=== PATIENT | male | born 1975 | race Caucasian/White ===

== ENCOUNTER 2017-10-31 21:01 | Emergency (ER) | payer BC, OTHER ==
--- NOTE | 2017-10-31 21:44 | ED ---
Allergic Reaction/Systemic - HPI Summary HPI Summary: 42-year-old male presents with bug bite to left ankle this morning. He states area has swollen. He admits to some itching to the area. has mild redness. No diffuse rash. No chest pain or shortness breath. No difficulty swallowing. No sore throat. No abdominal pain. No nausea no vomiting. He denies any previous reaction to a bug bite. He has no allergies to medication. He's been taking some Benadryl. No fevers. He is not diabetic. - History of Current Complaint Chief Complaint: EDRashSkinAbscess Time Seen by Provider: 10/31/17 21:44 Pain Intensity: 10 - Allergies/Home Medications Allergies/Adverse Reactions: Allergies Allergy/AdvReac Type Severity Reaction Status Date / Time No Known Allergies Allergy Verified 10/29/14 15:45 PMH/Surg Hx/FS Hx/Imm Hx Endocrine/Hematology History: Denies: Hx Anticoagulant Therapy, Hx Diabetes, Hx Thyroid Disease Cardiovascular History: Denies: Hx Hypertension Respiratory History: Reports: Hx Asthma Denies: Hx Chronic Obstructive Pulmonary Disease (COPD) GI History: Denies: Hx Ulcer Infectious Disease History: No Infectious Disease History: Denies: Hx Clostridium Difficile, Hx Hepatitis, Hx Human Immunodeficiency Virus (HIV), Hx of Known/Suspected MRSA, Hx Shingles, Hx Tuberculosis, Hx Known/ Suspected VRE, Hx Known/Suspected VRSA, History Other Infectious Disease, Traveled Outside the in Last 30 Days - Family History Known Family History: Positive: Hypertension - Social History Alcohol Use: Occasionally Substance Use Type: Reports: None Hx Tobacco Use: Yes Smoking Status (MU): Heavy Every Day Tobacco Smoker Type: Cigarettes Review of Systems Negative: Fever Negative: Chest Pain Negative: Shortness Of Breath Positive: Rash All Other Systems Reviewed And Are Negative: Yes Physical Exam Triage Information Reviewed: Yes Vital Signs On Initial Exam: Initial Vitals Temp Pulse Resp BP Pulse Ox 99.8 F 91 20 130/85 98 10/31/17 21:15 10/31/17 21:15 10/31/17 21:15 10/31/17 21:15 10/31/17 21:15 Vital Signs Reviewed: Yes Appearance: Positive: Well-Appearing Skin: Positive: Warm, Dry Head/Face: Positive: Normal Head/Face Inspection Eyes: Positive: Normal, Conjunctiva Clear ENT: Positive: Pharynx normal Respiratory/Lung Sounds: Positive: Clear to Auscultation, Breath Sounds Present Cardiovascular: Positive: Normal, RRR Musculoskeletal: Positive: Strength/ROM Intact - left ankle, Edema Left - mild, Other - mild erythema and edema around bug bite, no sign of cellulitis, Neurological: Positive: Normal Psychiatric: Positive: Normal Diagnostics - Vital Signs Vital Signs Temp Pulse Resp BP Pulse Ox 10/31/17 21:15 99.8 F 91 20 130/85 98 - Laboratory Lab Statement: Any lab studies that have been ordered have been reviewed, and results considered in the medical decision making process. Allergic Reaction Course/Dx - Course Course Of Treatment: 42-year-old male presents with bug bite to left ankle this morning. He states area has swollen. He admits to some itching to the area. has mild redness. No diffuse rash. No chest pain or shortness breath. No difficulty swallowing. No sore throat. No abdominal pain. No nausea no vomiting. He denies any previous reaction to a bug bite. He has no allergies to medication. He's been taking some Benadryl. No fevers. He is not diabetic. On exam mild erythema and edema. Full range of motion. Neurovascular intact. Lungs clear to auscultation. Discussed with minimal edema steroid probably will not do anything. Told to continue Benadryl. Told is worse tomorrow to start the steroid. Patient understands agrees with plan. - Diagnoses Differential Diagnosis/HQI/PQRI: Positive: Anaphylaxis, Local Allergic Reaction , Urticaria Provider Diagnoses: Bug bite Discharge - Sign-Out/Discharge Documenting (check all that apply): Patient Departure - Discharge Plan Condition: Good Disposition: HOME Prescriptions: predniSONE TAB* [Deltasone TAB*] 50 mg PO DAILY #4 tab Patient Education Materials: Insect Bite or Sting (ED) Referrals: Timothy Balderas MD [Primary Care Provider] - Additional Instructions: Take Benadryl every 6 hours If gets worst take steroid once a day for 4 days ice, elevate Return to ED if shortness of breath, chest pain, or if develop any new or worsening symptoms - Billing Disposition and Condition Condition: GOOD Disposition: Home
[2017-10-31 22:16] VITALS: BP 123/81
== END 2017-10-31 22:14 | disposition home or self-care (01) ==
LOC: ED 21:01
DX: S90.572A Other superficial bite of ankle, left ankle, initial encounter (principal); W57.XXXA Bitten or stung by nonvenomous insect and other nonvenomous arthropods, initial encounter; Y92.9 Unspecified place or not applicable
CPT/HCPCS: 99282

== ENCOUNTER 2018-09-26 13:28 | Emergency (ER) | payer SELFPAY ==
[2018-09-26] MEDS ORDERED: DOXYcycline CAP(*) 100 MG PO ONE (14:23)
[2018-09-26] MEDS ORDERED: Tetan/Diph/Pertus SYR(Tdap)* 0.5 ML SYR(BOOSTRIX) use SYR IM ONE (14:23)
--- NOTE | 2018-09-26 14:25 | ED ---
Skin Complaint - HPI Summary HPI Summary: This patient is a 42 year old male presenting to [facility] with a chief complaint of bulls eye rash on the posterior left leg since two days ago. He states he thinks he had a tick bite there and presents with the typical rash, but did not ever see a tick on him. He denies and headache, chest pain, SOB, or fatigue. The patient will be given medication rule out Lyme. - History of Current Complaint Chief Complaint: EDGeneral Time Seen by Provider: 09/26/18 14:14 Stated Complaint: POSSIBLE TICK BITE Hx Obtained From: Patient Onset/Duration: Started Hours Ago Skin Exposure Onset/Duration: Days Ago Pain Intensity: 4 Pain Scale Used: 0-10 Numeric Skin Location: Leg - Allergy/Home Medications Allergies/Adverse Reactions: Allergies Allergy/AdvReac Type Severity Reaction Status Date / Time No Known Allergies Allergy Verified 09/26/18 14:19 PMH/Surg Hx/FS Hx/Imm Hx Endocrine/Hematology History: Denies: Hx Anticoagulant Therapy, Hx Diabetes, Hx Thyroid Disease Cardiovascular History: Denies: Hx Hypertension Respiratory History: Reports: Hx Asthma Denies: Hx Chronic Obstructive Pulmonary Disease (COPD) GI History: Denies: Hx Ulcer Infectious Disease History: No Infectious Disease History: Denies: Hx Clostridium Difficile, Hx Hepatitis, Hx Human Immunodeficiency Virus (HIV), Hx of Known/Suspected MRSA, Hx Shingles, Hx Tuberculosis, Hx Known/ Suspected VRE, Hx Known/Suspected VRSA, History Other Infectious Disease, Traveled Outside the [place] in Last 30 Days - Family History Known Family History: Positive: Hypertension - Social History Alcohol Use: None Substance Use Type: Reports: None Hx Tobacco Use: Yes Smoking Status (MU): Heavy Every Day Tobacco Smoker Type: Cigarettes Review of Systems Negative: Fever Positive: Rash All Other Systems Reviewed And Are Negative: Yes Physical Exam - Summary Physical Exam Summary: Appearance: Well appearing, no pain distress Skin: warm, dry, reflects adequate perfusion. Macular erythemous rash 8x8 over the posterior LLE above the knee. Head/face: normal Eyes: EOMI, JOSEE ENT: normal Neck: supple, non-tender Respiratory: CTA, breath sounds present Cardiovascular: RRR, pulses symmetrical Abdomen: non-tender, soft Musculoskeletal: normal, strength/ROM intact Neuro: normal, sensory motor intact, A&Ox3 Triage Information Reviewed: Yes Vital Signs On Initial Exam: Initial Vitals Temp Pulse Resp BP Pulse Ox 99 F 100 20 143/89 97 09/26/18 13:30 09/26/18 13:30 09/26/18 13:30 09/26/18 13:30 09/26/18 13:30 Vital Signs Reviewed: Yes Diagnostics - Vital Signs Vital Signs Temp Pulse Resp BP Pulse Ox 09/26/18 13:30 99 F 100 20 143/89 97 - Laboratory Lab Statement: Any lab studies that have been ordered have been reviewed, and results considered in the medical decision making process. Course/Dx - Course Course Of Treatment: This patient is a 42 year old male presenting to [facility] with a chief complaint of bulls eye rash on the posterior left leg since two days ago. The patient will be given doxycycline rule out Lyme. He will be tested for the disease and discharged where he will receive his results over the next few days. This plan was discussed with the patient and he was agreeable with this plan. - Diagnoses Provider Diagnoses: Tick bite Discharge - Sign-Out/Discharge Documenting (check all that apply): Patient Departure - Discharge Patient Received Moderate/Deep Sedation with Procedure: No - Discharge Plan Condition: Stable Disposition: HOME Prescriptions: DOXYcycline CAP(*) [DOXYcycline 100MG CAP(*)] 100 mg PO BID #28 cap Patient Education Materials: Tick Bite (ED) Additional Instructions: Your results will come back in 2-3 days. Return to ED with any new or worsening symptoms. - Attestation Statements Document Initiated by Scribe: Yes Documenting Scribe: Sanjeev Nails Provider For Whom Scribe is Documenting (Include Credential): Dhiraj Peres MD Scribe Attestation: Sanjeev Sal, scribed for Dhiraj Peres MD on 09/26/18 at 1426. Status of Scribe Document: Ready
[2018-09-26 14:52] VITALS: BP 122/81
== END 2018-09-26 14:51 | disposition home or self-care (01) ==
LOC: ED 13:28
DX: S80.862A Insect bite (nonvenomous), left lower leg, initial encounter (principal); F17.210 Nicotine dependence, cigarettes, uncomplicated; W57.XXXA Bitten or stung by nonvenomous insect and other nonvenomous arthropods, initial encounter; Y92.9 Unspecified place or not applicable; Z23 Encounter for immunization
CPT/HCPCS: 36415; 86618; 90471; 90715; 99282; A9270-GY

== ENCOUNTER 2018-12-23 08:38 | Emergency (ER) | payer SELFPAY ==
[2018-12-23] MEDS ORDERED: Ketorolac *IM* INJ* 60 MG/2 ML VIAL IM ONE (09:09)
[2018-12-23 11:00] VITALS: BP 130/90
--- NOTE | 2018-12-23 15:13 | ED ---
Lower Extremity - HPI Summary HPI Summary: This patient is a 43-year-old male who presents to the ED with left ankle pain. He states "it went out and then went back in" 2 days ago. He states after this [place] and did not notice any pain. However last night he started to endorse some pain to the most lateral portion of the malleolus without extension to the lower extremity otherwise. Upon wakening this morning, patient states he was unable to bear weight. 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 He denies any fevers, erythema or warmth to the area. He denies any other known trauma or twisting the ankle. He denies any swelling to the ankle. - History of Current Complaint Chief Complaint: EDExtremityLower Stated Complaint: LEFT ANKLE PAIN PER PT Time Seen by Provider: 12/23/18 08:49 Hx Obtained From: Patient Onset of Pain: Hours Onset/Duration: Hours Severity Initially: Moderate Severity Currently: Moderate Pain Intensity: 10 Pain Scale Used: 0-10 Numeric Location: Is Discrete @ - left lateral ankle pain Associated Signs And Symptoms: Negative: Swelling, Redness, Bruising, Weakness, Dizziness Aggravating Factor(s): Standing, Ambulation Alleviating Factor(s): Rest Able to Bear Weight: No - Risk Factors Gout Risk Factors: Negative DVT Risk Factors: Negative Septic Arthritis Risk Factor: Negative - Allergies/Home Medications Allergies/Adverse Reactions: Allergies Allergy/AdvReac Type Severity Reaction Status Date / Time No Known Allergies Allergy Verified 12/23/18 08:42 PMH/Surg Hx/FS Hx/Imm Hx Previously Healthy: Yes Endocrine/Hematology History: Denies: Hx Anticoagulant Therapy, Hx Diabetes, Hx Thyroid Disease Cardiovascular History: Denies: Hx Hypertension Respiratory History: Reports: Hx Asthma Denies: Hx Chronic Obstructive Pulmonary Disease (COPD) GI History: Denies: Hx Ulcer - Immunization History Hx Pertussis Vaccination: No Immunizations Up to Date: Yes Infectious Disease History: No Infectious Disease History: Denies: Hx Clostridium Difficile, Hx Hepatitis, Hx Human Immunodeficiency Virus (HIV), Hx of Known/Suspected MRSA, Hx Shingles, Hx Tuberculosis, Hx Known/ Suspected VRE, Hx Known/Suspected VRSA, History Other Infectious Disease, Traveled Outside the [place] in Last 30 Days - Family History Known Family History: Positive: Hypertension - Social History Occupation: Employed Full-time Lives: With Family Alcohol Use: None Hx Substance Use: No Substance Use Type: Reports: None Hx Tobacco Use: Yes Smoking Status (MU): Heavy Every Day Tobacco Smoker Type: Cigarettes Review of Systems Negative: Fever, Chills, Fatigue, Skin Diaphoresis Negative: Palpitations, Chest Pain Negative: Shortness Of Breath, Cough Genitourinary: Negative Positive: no symptoms reported, see HPI Positive: Arthralgia - left lateral ankle pain. Negative: Myalgia Skin: Negative Neurological: Negative All Other Systems Reviewed And Are Negative: Yes Physical Exam Triage Information Reviewed: Yes Vital Signs On Initial Exam: Initial Vitals Temp Pulse Resp BP Pulse Ox 97.5 F 89 16 137/87 97 12/23/18 08:40 12/23/18 08:40 12/23/18 08:40 12/23/18 08:40 12/23/18 08:40 Vital Signs Reviewed: Yes Appearance: Positive: Well-Appearing, Well-Nourished Skin: Positive: Warm, Skin Color Reflects Adequate Perfusion Head/Face: Positive: Normal Head/Face Inspection Neck: Positive: Supple Respiratory/Lung Sounds: Positive: Clear to Auscultation Cardiovascular: Positive: RRR Musculoskeletal: Positive: Pain @ - dorsi and plantar flexion - discomfort to the L lateral ankle Neurological: Positive: Sensory/Motor Intact, Alert, Oriented to Person Place, Time, Speech Normal Psychiatric: Positive: Normal, Affect/Mood Appropriate AVPU Assessment: Alert Procedures - Sedation Patient Received Moderate/Deep Sedation with Procedure: No Diagnostics - Vital Signs Vital Signs Temp Pulse Resp BP Pulse Ox 12/23/18 10:28 97.8 F 66 18 130/90 97 12/23/18 08:40 97.5 F 89 16 137/87 97 - Laboratory Lab Statement: Any lab studies that have been ordered have been reviewed, and results considered in the medical decision making process. Lower Extremity Course/Dx - Course Course Of Treatment: On physical examination, patient is able to dorsiflex and plantar flex, however with discomfort. There is no erythema, swelling or warmth to the ankle. There is no obvious deformity. X-rays were obtained which showed no acute osseous findings other than osteo-arthritis. PT was ambulating but with pain and states he has crutchest at home. He remains afebrile, no numbness or tingling, pulses +2 bilaterally. He is encouraged Toradol and is given a note for work. - Diagnoses Differential Diagnosis/HQI/PQRI: Positive: Fracture (Closed), Fracture (Open), Sprain, Strain Provider Diagnoses: Osteoarthritis Discharge ED - Sign-Out/Discharge Documenting (check all that apply): Patient Departure - Discharge Plan Condition: Stable Disposition: HOME Prescriptions: Ketorolac TAB * [Toradol TAB *] 10 mg PO Q6H #16 tab Patient Education Materials: Osteoarthritis (ED), Arthralgia (ED) Forms: *Work Release Referrals: Randy Dumont MD [Medical Doctor] - Timothy Balderas MD [Primary Care Provider] - Additional Instructions: Toradol four times daily x 4 days Ibpurofen 600mg three times daily may also be alternatively used Ice to the area Remain off the ankle as much as possible When you return to work, continue to ice after you get home Elevate if possible Follow up with orthopedics if symptoms worsen - Billing Disposition and Condition Condition: STABLE Disposition: Home
== END 2018-12-23 10:28 | disposition home or self-care (01) ==
LOC: ED 08:38
DX: M19.072 Primary osteoarthritis, left ankle and foot (principal); J45.909 Unspecified asthma, uncomplicated; F17.210 Nicotine dependence, cigarettes, uncomplicated
CPT/HCPCS: 96372; 99282; J1885

== ENCOUNTER 2019-05-22 10:22 | Emergency (ER) | payer BC, MEDICAID ==
[2019-05-22 10:46] VITALS: BP 123/82
--- NOTE | 2019-05-22 10:53 | UC ---
Minor Trauma HPI - HPI Summary HPI Summary: patient was running in house and slipped and fell onto edge of tub last evening injuring L side ribs. painful to breath, has been using ibuprofen 800mg (last this am) with mod relief, still reports 10/10 pain. No cough. - History of Current Complaint Chief Complaint: UCTrauma Stated Complaint: RIB INJURY Time Seen by Provider: 05/22/19 10:41 Hx Obtained From: Patient Onset/Duration: Sudden Onset Onset Of Pain: Immediate Severity Initially: Severe Severity Currently: Severe Pain Intensity: 7 Mechanism Of Injury: Blunt Trauma - fell on side of bath tub Aggravating Factor(s): Deep Breaths, Movement Alleviating Factor(s): Compression - wearing vecro wrap around ribs, OTC Meds - moderate relief Associated Signs And Symptoms: Negative: Loss Of Consciousness - Allergies/Home Medications Allergies/Adverse Reactions: Allergies Allergy/AdvReac Type Severity Reaction Status Date / Time No Known Allergies Allergy Verified 05/22/19 10:46 Home Medications: Home Medications HYDROcodone/ACETAMIN 5-325 MG* [[place] 5-325 TAB*] 1 tab PO Q6H PRN #12 tab MDD 4 05/22/19 [Rx] PMH/Surg Hx/FS Hx/Imm Hx Previously Healthy: Yes Other History Of: Negative For: Anticoagulant Therapy - Surgical History Surgical History: None - Family History Known Family History: Positive: Hypertension - Social History Occupation: Employed Full-time Lives: With Family Alcohol Use: None Substance Use Type: None Smoking Status (MU): Heavy Every Day Tobacco Smoker Type: Cigarettes Cessation Counseling: Patient Advised to Stop Review of Systems All Other Systems Reviewed And Are Negative: Yes Constitutional: Positive: Negative Skin: Positive: Negative. Negative: Bruising Respiratory: Positive: Negative. Negative: Shortness Of Breath, Cough Cardiovascular: Positive: Negative Gastrointestinal: Positive: Negative. Negative: Abdominal Pain Genitourinary: Positive: Negative. Negative: Hematuria Musculoskeletal: Positive: Decreased ROM - d/t L rib pain Psychological: Positive: Negative Is Patient Immunocompromised?: No Physical Exam Triage Information Reviewed: Yes Appearance: Well-Appearing, Well-Nourished, Pain Distress - moving very slowly, grimaces with movement Vital Signs: Initial Vital Signs Temp 98.1 F 05/22/19 10:38 Pulse 72 05/22/19 10:38 Resp 18 05/22/19 10:38 BP 123/82 05/22/19 10:38 Pulse Ox 100 05/22/19 10:38 Vital Signs Reviewed: Yes Respiratory Exam: Normal Respiratory: Positive: Lungs clear Cardiovascular Exam: Normal Cardiovascular: Positive: RRR Musculoskeletal: Positive: ROM Limited @ - d/t L rib pain, no bending Neurological Exam: Normal Neurological: Positive: Alert Psychological Exam: Normal Skin Exam: Normal Skin: Positive: Other - no ecchymosis L chest/back Diagnostics - Radiology No standard instances Radiology Interpretation Completed By: Radiologist - No rib fracture, no pneumothorax Minor Trauma Course/Dx - Differential Dx/Diagnosis Differential Diagnosis/HQI/PQRI: Contusion(s), Fracture Provider Diagnosis: Contusion of rib on left side Discharge ED - Sign-Out/Discharge Documenting (check all that apply): Patient Departure All imaging exams completed and their final reports reviewed: Yes - No rib fracture, no pneumothorax - Discharge Plan Condition: Stable Disposition: HOME Prescriptions: HYDROcodone/ACETAMIN 5-325 MG* [[place] 5-325 TAB*] 1 tab PO Q6H PRN #12 tab MDD 4 PRN Reason: Pain - Severe Patient Education Materials: Rib Contusion (ED) Forms: *Work Release Referrals: Timothy Balderas MD [Primary Care Provider] - 4 Days (if not improving) Additional Instructions: do not wear rib belt use ibuprofen 800mg every 6 hours as needed for pain (take with food) Use hydrocodone for severe pain as directed apply ice packs to area of pain today and tomorrow Return if you have shortness of breath at rest - Billing Disposition and Condition Condition: STABLE Disposition: Home - Attestation Statements Provider Attestation: I was available for consult. This patient was seen by the BENJAMIN. The patient was not presented to , seen by or examined by -Alma Busby MD
== END 2019-05-22 11:48 | disposition home or self-care (01) ==
LOC: UCEAST 10:22
DX: S20.20XA Contusion of thorax, unspecified, initial encounter (principal); W01.198A Fall on same level from slipping, tripping and stumbling with subsequent striking against other object, initial encounter; Y93.02 Activity, running; Y92.002 Bathroom of unspecified non-institutional (private) residence as the place of occurrence of the external cause
CPT/HCPCS: 99211; G0463

== ENCOUNTER 2019-05-25 10:45 | Emergency (ER) | payer BC ==
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
[2019-05-25 11:19] VITALS: BP 137/93
== END 2019-05-25 11:37 | disposition home or self-care (01) ==
LOC: UCEAST 10:45
DX: S20.212D Contusion of left front wall of thorax, subsequent encounter (principal); W01.198D Fall on same level from slipping, tripping and stumbling with subsequent striking against other object, subsequent encounter; F17.210 Nicotine dependence, cigarettes, uncomplicated
CPT/HCPCS: 99211; G0463

== ENCOUNTER 2019-05-29 11:07 | Emergency (ER) | payer BC ==
[2019-05-29 11:23] VITALS: BP 138/79
--- NOTE | 2019-05-29 11:27 | UC ---
Truncal Trauma HPI - History Of Current Complaint Chief Complaint: UCTrauma Stated Complaint: RIB PAIN Time Seen by Provider: 05/29/19 11:12 Hx Obtained From: Patient Onset/Duration: Lasting Days - 7, Worse Since - last night Onset Of Pain: Immediate Pain Intensity: 10 Pain Scale Used: 0-10 Numeric Mechanism Of Injury: Blunt Trauma - orginal injury, Twisted - injury last night Aggravating Factor(s): Movement, Deep Breathing Alleviating factor(s): Other - hydrocodone Associated Signs And Symptoms: Positive: Negative - Allergies/Home Medications Allergies/Adverse Reactions: Allergies Allergy/AdvReac Type Severity Reaction Status Date / Time No Known Allergies Allergy Verified 05/29/19 11:16 Home Medications: Home Medications HYDROcodone/ACETAMIN 5-325 MG* [[place] 5-325 TAB*] 1 tab PO Q8H PRN 3 Days #9 tab MDD 3 05/25/19 [Rx Confirmed 05/29/19] Cyclobenzaprine TAB* [Flexeril 10 MG TAB*] 10 mg PO TID PRN #15 tab 05/29/19 [Rx ] Ibuprofen TAB* [Motrin TAB* 600 MG] 600 mg PO Q6H PRN #40 tab 05/29/19 [Rx] PMH/Surg Hx/FS Hx/Imm Hx Previously Healthy: Yes Other History Of: Negative For: Anticoagulant Therapy - Surgical History Surgical History: None - Family History Known Family History: Positive: Hypertension - Social History 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[employer] [place] Family Alcohol Use: None Substance Use Type: None Smoking Status (MU): Heavy Every Day Tobacco Smoker Type: Cigarettes Amount Used/How Often: 1 ppd Have You Smoked in the Last Year: Yes Household Exposure Type: Cigarettes Cessation Counseling: Counseled 3+Min - 10 Min Review of Systems All Other Systems Reviewed And Are Negative: Yes Constitutional: Positive: Negative Skin: Positive: Negative Eyes: Positive: Negative ENT: Positive: Negative Respiratory: Positive: Negative Cardiovascular: Positive: Negative Gastrointestinal: Positive: Negative Genitourinary: Positive: Negative Motor: Positive: Negative Neurovascular: Positive: Negative Musculoskeletal: Positive: Arthralgia - left lateral ribs Neurological/Mental Status: Positive: Negative Psychological: Positive: Negative Is Patient Immunocompromised?: No Physical Exam Triage Information Reviewed: Yes Appearance: Well-Appearing, No Pain Distress, Well-Nourished Vital Signs Reviewed: Yes Eye Exam: Normal Eyes: Positive: Conjunctiva Clear ENT Exam: Normal ENT: Positive: Normal ENT inspection, Hearing grossly normal. Negative: Nasal congestion, Trismus, Muffled voice, Hoarse voice Dental Exam: Normal Neck exam: Normal Neck: Positive: Supple, Nontender, No Lymphadenopathy Respiratory Exam: Normal Respiratory: Positive: Chest non-tender, Lungs clear, Normal breath sounds, No respiratory distress, No accessory muscle use Cardiovascular Exam: Normal Cardiovascular: Positive: RRR, No Murmur, Pulses Normal, Brisk Capillary Refill Musculoskeletal Exam: Normal Musculoskeletal: Positive: Strength Intact Neurological Exam: Normal Neurological: Positive: Alert, Muscle Tone Normal Psychological Exam: Normal Skin Exam: Normal Diagnostics - Radiology No standard instances Radiology Interpretation Completed By: Radiologist - no evidence of fracture Truncal Trauma Course/Dx - Course Course Of Treatment: ibuprofen flexeril warm compress splinting ribs follow with pcp prn off work for 3 days - Differential Dx/Diagnosis Provider Diagnosis: Chest wall contusion, Nicotine dependence with current use Discharge ED - Sign-Out/Discharge Documenting (check all that apply): Patient Departure All imaging exams completed and their final reports reviewed: Yes - Discharge Plan Condition: Stable Disposition: HOME Prescriptions: Cyclobenzaprine TAB* [Flexeril 10 MG TAB*] 10 mg PO TID PRN #15 tab PRN Reason: pain Ibuprofen TAB* [Motrin TAB* 600 MG] 600 mg PO Q6H PRN #40 tab PRN Reason: pain Patient Education Materials: How to Stop Smoking (ED), Rib Contusion (ED), Warm Compress or Soak (ED) Forms: *Work Release Referrals: Timothy Balderas MD [Primary Care Provider] - If Needed - Billing Disposition and Condition Condition: STABLE Disposition: Home - Attestation Statements Provider Attestation: This patient was not seen by me. I was available for consult. Chart reviewed. JOHN
== END 2019-05-29 12:50 | disposition home or self-care (01) ==
LOC: UCEAST 11:07
DX: S20.212A Contusion of left front wall of thorax, initial encounter (principal); X50.1XXA Overexertion from prolonged static or awkward postures, initial encounter; Y92.9 Unspecified place or not applicable; Z71.6 Tobacco abuse counseling; F17.210 Nicotine dependence, cigarettes, uncomplicated
CPT/HCPCS: 99212; G0463